=== PATIENT | female | born 2000 | race Caucasian/White ===

== ENCOUNTER 2020-04-04 05:55 | Inpatient (IN) | payer MEDICAID ==
[~2020-04-04] VITALS: Ht 157.5 cm; Wt 52.5 kg
[2020-04-04] VITALS (48 sets, daily range): BP systolic 92–136; BP diastolic 53–84
--- NOTE | 2020-04-04 06:05 | NUR ---
ASHLIE CAR presented to unit via from ED, accompanied by , for INDUCTION. ASHLIE CAR weighed, gowned, voided, and to bed. EFHM and TOCO applied, VS taken. ASHLIE CAR oriented to bed controls, call light, TV, heat, and A/C controls.
[2020-04-04] MEDS ORDERED: D5 LR IV SOLUTION 1,000 ML IV SCH (06:37)
[2020-04-04] MEDS ORDERED: MINERAL OIL CONCENTRATE 99.9% 15 ML UDC TOP PRN (06:45)
[2020-04-04] MEDS ORDERED: AMPICILLIN FOR IV USE 2,000 MG in WATER (STERILE) FOR INJECTION 14.8 ML IV SCH (06:45)
[2020-04-04] MEDS ORDERED: AMPICILLIN 2,000 MG/14.8 ML (IV USE) ONE (06:47)
[2020-04-04] MEDS ORDERED: WATER (STERILE) FOR INJECTION 20 ML ONE (06:47)
[2020-04-04 07:09] LABS: BASOPHILS % (AUTO) 0 % (0-10); EOSINOPHILS # (AUTO) 0.2 10^3/uL (0.0-0.3); EOSINOPHILS % (AUTO) 3 % (0-10); HEMATOCRIT 32 % (35-52); HEMOGLOBIN 10.4 g/dL (11.5-16.0); LYMPHOCYTES # (AUTO) 1.9 10^3/uL (1.0-4.0); LYMPHOCYTES % (AUTO) 27 % (12-44); MEAN CORPUSCULAR HEMOGLOBIN 27 pg (25-34); MEAN CORPUSCULAR HGB CONC 32 g/dL (32-36); MEAN CORPUSCULAR VOLUME 84 fL (80-99); MEAN PLATELET VOLUME 9.8 fL (9.0-12.2); MONOCYTES # (AUTO) 0.6 10^3/uL (0.0-1.0); MONOCYTES % (AUTO) 8 % (0-12); NEUTROPHILS # (AUTO) 4.4 10^3/uL (1.8-7.8); NEUTROPHILS % (AUTO) 61 % (42-75); PLATELET COUNT 216 10^3/uL (130-400); WHITE BLOOD COUNT 7.2 10^3/uL (4.3-11.0)
--- NOTE | 2020-04-04 07:16 | NUR ---
Pitocin order received from .
[2020-04-04] MEDS ORDERED: OXYTOCIN PRE-MIX DRIP 500 ML IV SCH ×2 (07:28→16:15)
[2020-04-04] MEDS ORDERED: IPRA4AER IH (08:37)
[2020-04-04] MEDS ORDERED: AMPICILLIN FOR IV USE 1,000 MG in WATER (STERILE) FOR INJECTION 7.4 ML IV SCH (10:45)
--- NOTE | 2020-04-04 12:44 | History & Physical-OB ---
OB - Chief Complaint & HPI Date/Time Date of Admission: Date of Admission: Apr 04, 2020 at 05:55 Date seen by a Provider: Apr 04, 2020 Time Seen by a Provider: 12:20 Chief Complaint/History OB-Reason for Admission/Chief: Induction of Labor Hx : 2 Hx Para: 1 Expected Date of Delivery: Apr 06, 2020 Gestational Age in Weeks: 39 Gestational Age in Days: 5 Indication for induction: maternal discomfort History of Labs A+, antibody neg, RI. HIV/HepB/RPR NR. Glucola nml. GBS pos. Allergies and Home Medications Allergies Coded Allergies: risperidone (Verified Allergy, Mild, Hives, 04/04/20) Home Medications Albuterol Sulfate 1 Puff Puff, 2 PUFF IH Q4H, (Reported) 1 PUFF = 90 MCG Iron,Carbonyl/Ascorbic Acid 1 Each Tablet.dr, 1 EACH PO DAILY, (Reported) Vit No.124/Iron/FA 1 Each Tablet, 1 EACH PO DAILY, (Reported) Patient Home Medication List Home Medication List Reviewed: Yes OB - History Hx of Present Care: Yes Ultrasounds: Normal mid trimester US Obstetrical Complications: None Medical Complications: None Information Induced Hypertension: No Maternal Gestational Diabetes: No Hemorrhage: No Obstetrical History Hx : 2 Hx Para: 1 Hx # Term Pregnancies: 1 Hx # Pregnancies: 0 Number of Living Children: 1 Hx Termination: No Hx Total # of Abortions (Spona: 0 Hx Multiple Gestation: No Hx Ectopic : No Hx Stillbirth: No Hx Complication: No Hx Induced Hypertens: No Hx Maternal Gestational Diabet: No Hx Hemorrhage: No Delivery History Hx Dystocia: No Hx Forceps Assisted Delivery: No Hx Vacuum Extraction Assisted: No Hx Placenta Abnormality: No Hx Distress: No Hx Large For Gestational Age I: No Hx Small for Gestational Age I: No Hx Section: No Hx Vaginal Delivery Post C-Sec: No Hx Blood Disorders: No Adverse Rxn to Tranfusion: No Patient Past Medical History PMHx: ADHD Depression Anxiety Asthma SurgHx: Ankle [place] teeth Social History/Family History HIV/AIDS: No Recent Infectious Disease Expo: No Sexually Transmitted Disease: No Alcohol Use: Denies Use Recreational Drug Use: No Smoking Cessation: Never smoker Immunizations Hepatitis A: No Hepatitis B: No Date of Influenza Vaccine: Mar 20, 2020 OB - Admission Exam Physical Exam Vitals: Vital Signs 04/04/20 04/04/20 04/04/20 07:45 08:15 11:45 Temp 35.4 Pulse 94 Resp 18 B/P (MAP) 98/58 (71) Pulse Ox 100 O2 Delivery Room Air HEENT: NCAT Cervical Dilatation: 5cm Effacement: 50% Station: -2 Heart Rate: 140's Accelerations: Accelerations Present Short Term Variability: Present Longterm Variability: Average (6-25) Contractions on Admission: None Vu Scoring Tool (Modified) Dilation (cm): 3-4cm (2) Effacement (%): 0-30% (0) Descent/Station: -3 (0) Cervix Consistency: Soft (2) Cervix Position: Middle/Mid-Position (1) Add 1 point for: Each previous vaginal delivery (1) (1) Vu Score: 6 Labs Laboratory Tests Test 04/04/20 06:30 Range/Units White Blood Count 7.2 4.3-11.0 10^3/uL Red Blood Count 3.81 3.80-5.11 10^6/uL Hemoglobin 10.4 L 11.5-16.0 g/dL Hematocrit 32 L 35-52 % Mean Corpuscular Volume 84 80-99 fL Mean Corpuscular Hemoglobin 27 25-34 pg Mean Corpuscular Hemoglobin Concent 32 32-36 g/dL Red Cell Distribution Width 17.9 H 10.0-14.5 % Platelet Count 216 130-400 10^3/uL Mean Platelet Volume 9.8 9.0-12.2 fL Immature Granulocyte % (Auto) 1 % Neutrophils (%) (Auto) 61 42-75 % Lymphocytes (%) (Auto) 27 12-44 % Monocytes (%) (Auto) 8 0-12 % Eosinophils (%) (Auto) 3 0-10 % Basophils (%) (Auto) 0 0-10 % Neutrophils # (Auto) 4.4 1.8-7.8 10^3/uL Lymphocytes # (Auto) 1.9 1.0-4.0 10^3/uL Monocytes # (Auto) 0.6 0.0-1.0 10^3/uL Eosinophils # (Auto) 0.2 0.0-0.3 10^3/uL Basophils # (Auto) 0.0 0.0-0.1 10^3/uL Immature Granulocyte # (Auto) 0.1 0.0-0.1 10^3/uL OB - Assessment/Plan/Diagnosis Assessment Assessment: group B positive strep, induction of labor Admission Dx Term intrauterine at 39 weeks gestation Induction of labor GBS positive Admission Status: Inpatient Order (span 2 midnights) Reason for Inpatient Admission: Induction, labor, delivery and course Plan Plan: Induction Induction Method: per Pitocin Protocol Other Plan Ampicillin for GBS pos AROM done after second dose of abx- clear fluid. BREONNA PALACIO MD Apr 04, 2020 12:44
[2020-04-04] MEDS ORDERED: RT-ALBUINH IH (12:45)
[2020-04-04] MEDS ORDERED: PREN-142 PO (12:45)
[2020-04-04] MEDS ORDERED: IRON1TAB97 PO (12:45)
--- NOTE | 2020-04-04 13:17 | NUR ---
anesthesia notified of pt's request for epidural placement
[2020-04-04] MEDS ORDERED: fentaNYL 2 mcg/ml BUPIVA 0.125 100 ML ONE (13:23)
[2020-04-04] MEDS ORDERED: LACTATED RINGERS 1,000 ML IV ONE (13:26)
[2020-04-04] MEDS ORDERED: fentaNYL 2 mcg/ml BUPIVA 0.125 100 ML IV SCH (13:26)
--- NOTE | 2020-04-04 13:26 | NUR ---
SAPNA Queen here for epidural placement. Procedure explained, consent reviewed and signed by anesthesia. Questions answered to patient's satisfaction. Time out taken to verify correct patient/procedure. 1329- Patient up to side of bed, assisted into sitting position. Betadine prep done x3 and sterile drape applied. 1336-Local done, see anesthesia record. 1347- Test dose given, see anesthesia record for drug and dosage. Epidural catheter secured in place. Epidural placement complete. 1352- Assisted back into bed, monitors adjusted. Epidural dosed, see anesthesia record. Epidural of Sufenta/Fentanyl @10cc/hr stated per pump. Patient tolerated procedure well.
[2020-04-04] MEDS ORDERED: BUPIVACAINE 0.25% 30 ML (SENSORCAINE) VIAL ONE (13:27)
[2020-04-04] MEDS ORDERED: fentaNYL INJECTION 100 MCG/2 ML AMP ONE (13:28)
[2020-04-04] MEDS ORDERED: NALOXONE 0.4 MG/ML 1 ML (NARCAN) VIAL IV PRN (13:30)
[2020-04-04] MEDS ORDERED: CATHETER FLUSH 10 ML SYR IV PRN (13:30)
[2020-04-04] MEDS ORDERED: CATHETER FLUSH 10 ML SYR IV SCH ×2 (14:00→22:00)
--- NOTE | 2020-04-04 14:21 | NUR ---
was called with SVE update. no orders received.
[2020-04-04] MEDS ORDERED: MISOPROSTOL 200 MCG (CYTOTEC) TABLET ONE (15:06)
[2020-04-04] MEDS ORDERED: MISOPROSTOL 200 MCG (CYTOTEC) TABLET PR ONE (15:08)
--- NOTE | 2020-04-04 15:20 | OB Labor & Delivery Record ---
Vag Delivery Note Vag Delivery Note Date of Delivery: 04/04/20 Preoperative Diagnosis: Mia Booker is a 20 /Para 2 / 1,Gestational Age (wks)39with 6 days Postoperative Diagnosis: Same Surgeon: BREONNA PALACIO Drying Machine Operator Package Yarns: JOSE Galarza Anesthesia: Epidural Delivery Type: Findings: Viable male infant, apgars 9/9, weight 7#7 Lacerations: none Intact placenta with 3 vessel cord. No nuchal cord, body cord or shoulder dystocia Cytotec 800 mcg placed for hemorrhage prophylaxis Estimated Blood Loss: 350 ml Complications: None Condition: Stable Description of Procedure: The patient is a 20 year old female who presented for IOL. She was admitted and informed consent was obtained. Her labor course was unremarkable. She progressed to complete dilatation and began to push. She was then set up for delivery. The infant's head was delivered atraumatically in the OA position. The shoulders and remainder of the infant's body were then delivered without difficulty. Upon delivery, the infant was vigorous and placed on maternal abdomen. After a delay the cord was doubly clamped and cut and the was handed off to the pediatric staff. An intact placenta with 3-vessel cord delivered via Alycia and there was found to be minimal bleeding.~ Vigorous fundal massage was performed and the fundus was found to be firm. IV oxytocin was given. Examination of the vagina and perineum revealed no lacerations (bilateral periurethral abrasions). Following the delay, sponge, instrument and needle counts were correct. Mom and baby were both in stable condition in the labor suite. Vitals - Labs Vital Signs - I&O Vital Signs Date Time Temp Pulse Resp B/P (MAP) Pulse Ox O2 Delivery O2 Flow Rate FiO2 04/04/20 13:00 96 18 117/77 (90) Room Air 04/04/20 12:45 100 18 128/83 (98) Room Air 04/04/20 12:30 100 18 128/83 (98) Room Air 04/04/20 12:15 36.3 88 18 92/53 (66) Room Air 04/04/20 12:00 88 18 92/53 (66) Room Air 04/04/20 11:45 94 18 98/58 (71) Room Air 04/04/20 11:30 86 18 98/54 (69) Room Air 04/04/20 11:15 82 18 102/59 (73) Room Air 04/04/20 11:00 86 18 96/57 (70) Room Air 04/04/20 10:45 83 18 99/55 (70) Room Air 04/04/20 10:30 80 18 99/55 (70) Room Air 04/04/20 10:15 80 18 99/55 (70) Room Air 04/04/20 10:00 81 18 93/54 (67) Room Air 04/04/20 09:45 84 18 97/55 (69) Room Air 04/04/20 09:30 82 18 104/60 (75) Room Air 04/04/20 09:15 88 18 105/64 (78) Room Air 04/04/20 09:00 85 18 98/54 (69) Room Air 04/04/20 08:45 90 18 92/54 (67) Room Air 04/04/20 08:30 83 18 99/56 (70) Room Air 04/04/20 08:15 78 18 114/74 (87) 100 Room Air 04/04/20 08:00 99 18 111/79 (90) Room Air 04/04/20 07:45 35.4 82 18 114/72 (86) Room Air Labs Laboratory Tests 04/04/20 06:30: White Blood Count 7.2, Red Blood Count 3.81, Hemoglobin 10.4L, Hematocrit 32L, Mean Corpuscular Volume 84, Mean Corpuscular Hemoglobin 27, Mean Corpuscular Hemoglobin Concent 32, Red Cell Distribution Width 17.9H, Platelet Count 216, Mean Platelet Volume 9.8, Immature Granulocyte % (Auto) 1, Neutrophils (%) (Auto) 61, Lymphocytes (%) (Auto) 27, Monocytes (%) (Auto) 8, Eosinophils (%) (Auto) 3, Basophils (%) (Auto) 0, Neutrophils # (Auto) 4.4, Lymphocytes # (Auto) 1.9, Monocytes # (Auto) 0.6, Eosinophils # (Auto) 0.2, Basophils # (Auto) 0.0, Immature Granulocyte # (Auto) 0.1 BREONNA PALACIO MD Apr 04, 2020 15:20
[2020-04-04] MEDS ORDERED: METHYLERGONOVINE 0.2 MG/ML (METHERGINE) AMP ONE (16:10)
[2020-04-04] MEDS ORDERED: TETANUS,DIPTH,PERTUSS P/F (BOOSTRIX) 0.5 ML VIAL IM ONE (16:15)
[2020-04-04] MEDS ORDERED: BENZOCAINE/MENTHOL (DERMOPLAST) 60 ML CAN TP PRN (16:15)
[2020-04-04] MEDS ORDERED: MISOPROSTOL 200 MCG (CYTOTEC) TABLET PV ONE (16:15)
[2020-04-04] MEDS ORDERED: MEASLES,MUMPS,RUBELLA 1 EA INJ SQ ONE (16:15)
[2020-04-04] MEDS ORDERED: METHYLERGONOVINE 0.2 MG/ML (METHERGINE) AMP IM ONE (16:15)
[2020-04-04] MEDS ORDERED: WITCH HAZEL(TUCKS) 40 EA JAR TOP PRN (16:15)
--- NOTE | 2020-04-04 17:16 | NUR ---
FFu/o. lt rubra noted. no clots expressed.
--- NOTE | 2020-04-04 18:40 | NUR ---
FFu/o. scant vaginal bleeding noted. angie-care offered. v-pad and panties in place. pt transferred to room 309 via w/c with infant and @ side. pt stable with no sx's of distress noted.
[2020-04-04] MEDS: IBUPROFEN 600 MG (MOTRIN) TAB PO SCH (18:45)
--- NOTE | 2020-04-04 19:15 | NUR ---
report given to Sarahi RN
--- NOTE | 2020-04-04 19:20 | NUR ---
This RN to room to assist patient to bathroom for the first time. Patient ambulated without difficulty. Positive void noted. Light rubra bleeding without clots noted.
[2020-04-04] MEDS: DOCUSATE SODIUM 100 MG (COLACE) CAP PO SCH (20:47)
[2020-04-05 00:20] VITALS: BP 122/72
[2020-04-05] MEDS: IBUPROFEN 600 MG (MOTRIN) TAB PO SCH ×2 (00:21→08:19)
[2020-04-05 03:55] VITALS: BP 104/57
[2020-04-05 06:43] LABS: BASOPHILS % (AUTO) 0 % (0-10); EOSINOPHILS # (AUTO) 0.2 10^3/uL (0.0-0.3); EOSINOPHILS % (AUTO) 2 % (0-10); HEMATOCRIT 32 % (35-52); HEMOGLOBIN 10.4 g/dL (11.5-16.0); LYMPHOCYTES # (AUTO) 1.9 10^3/uL (1.0-4.0); LYMPHOCYTES % (AUTO) 18 % (12-44); MEAN CORPUSCULAR HEMOGLOBIN 27 pg (25-34); MEAN CORPUSCULAR HGB CONC 32 g/dL (32-36); MEAN CORPUSCULAR VOLUME 84 fL (80-99); MONOCYTES % (AUTO) 10 % (0-12); NEUTROPHILS # (AUTO) 7.3 10^3/uL (1.8-7.8); NEUTROPHILS % (AUTO) 70 % (42-75); PLATELET COUNT 212 10^3/uL (130-400); WHITE BLOOD COUNT 10.4 10^3/uL (4.3-11.0)
[2020-04-05 08:15] VITALS: BP 116/69
[2020-04-05] MEDS: DOCUSATE SODIUM 100 MG (COLACE) CAP PO SCH (08:19)
[2020-04-05] MEDS ORDERED: IBUP-844 PO (08:49)
--- NOTE | 2020-04-05 08:52 | Discharge Summary ---
Discharge Summary Hospital Course Hospital Course Date of Admission: Apr 04, 2020 at 05:55 Admission Diagnosis : 39w5d GA; Induction of labor GBS positive Family Physician/Provider: Umang Date of Discharge: 04/05/20 Discharge Diagnosis: 39w5d GA; Induction of labor s/p ; bilateral periurethral abrasions (no repair) GBS positive- adequate antibiotic prophylaxis Hospital Course: Routine course. Labs and Pending Lab Test: Laboratory Tests 04/05/20 05:44: White Blood Count 10.4, Red Blood Count 3.86, Hemoglobin 10.4L, Hematocrit 32L, Mean Corpuscular Volume 84, Mean Corpuscular Hemoglobin 27, Mean Corpuscular Hemoglobin Concent 32, Red Cell Distribution Width 17.5H, Platelet Count 212, Mean Platelet Volume 10.0, Immature Granulocyte % (Auto) 1, Neutrophils (%) (Auto) 70, Lymphocytes (%) (Auto) 18, Monocytes (%) (Auto) 10, Eosinophils (%) (Auto) 2, Basophils (%) (Auto) 0, Neutrophils # (Auto) 7.3, Lymphocytes # (Auto) 1.9, Monocytes # (Auto) 1.0, Eosinophils # (Auto) 0.2, Basophils # (Auto) 0.0, Immature Granulocyte # (Auto) 0.1 Home Meds Active Reported Vitron-C Tablet (Iron,Carbonyl/Ascorbic Acid) 1 Each Tablet. 1 Each PO DAILY Vitamin Tablet ( Vit No.124/Iron/FA) 1 Each Tablet 1 Each PO DAILY Proair Hfa (Albuterol Sulfate) 1 Puff Puff 2 Puff IH Q4H 1 PUFF = 90 MCG Assessment/Pt DC Instructions Follow up with Dr. Heck in 6wk Discharge Diet: No Restrictions Discharge Physical Examination Allergies: Coded Allergies: risperidone (Verified Allergy, Mild, Hives, 04/04/20) General Appearance: No Apparent Distress, WD/WN Gastrointestinal: Non Tender, Soft Neurologic/Psychiatric: Alert, Oriented x3, Normal Mood/Affect Copy Copies To 1: BREONNA HECK MD Clinical Quality Measures DVT/VTE Risk/Contraindication: Risk Factor Score Per Nursin RFS Level Per Nursing on Admit: 1=Low/No VTE PPX CALLY THAO DO Apr 05, 2020 08:52
--- NOTE | 2020-04-05 11:32 | NUR ---
Discharge instructions given/explained to pt at this time. Pt denies questions. RX called into [facility] per pt request. Pt understands she is no longer a pt. Pt understands not to leave until DC instructions have been given for infant.
--- NOTE | 2020-04-05 12:36 | Anesthesia-Regional Post-Op ---
Regional Patient Condition Mental Status: Alert, Oriented x3 Circulation: Same as Pre-Op Headache: Absent Sensation: Full Recovery Motor Block: Absent Post Op Complications Complications None Follow Up Care/Instructions Patient Instructions None needed. Anesthesia/Patient Condition Patient was seen this morning and she was doing well, no complaints, stable vital signs, no apparent adverse anesthesia problems. JOSE ESTEVEZ DO Apr 05, 2020 12:36
== END 2020-04-05 11:35 | disposition home or self-care (01) | DRG 807 ==
LOC: LDRP 05:55
PROVIDERS: ADMIT Family Medicine; ATTEND Family Medicine
PROC: 10E0XZZ Delivery of Products of Conception, External Approach (ICD-10-PCS; principal; 2020-04-04)
DX: O80 Encounter for full-term uncomplicated delivery (principal); Z37.0 Single live birth; Z3A.39 39 weeks gestation of pregnancy; O71.82 Other specified trauma to perineum and vulva
CPT/HCPCS: 36415; 85025; 86780; 86850; 86900; 86901

== ENCOUNTER 2020-09-21 18:33 | Emergency (ER) | payer MEDICAID ==
[~2020-09-21] VITALS: Ht 157 cm; Wt 51.4 kg
[~2020-09-21 18:33] MED LIST: IBUP-844 PO; IPRA4AER IH; IRON1TAB97 PO; PREN-142 PO; RT-ALBUINH IH
[2020-09-21 18:39] VITALS: BP 143/94
--- NOTE | 2020-09-21 18:48 | ED GU-Female ---
General Chief Complaint: - Urinary Stated Complaint: FREQUENT URINATION Source: patient Exam Limitations: no limitations History of Present Illness Date Seen by Provider: Sep 21, 2020 Time Seen by Provider: 18:38 Initial Comments Adamaris is a pleasant 20-year-old female 2 who presents the ER with chief complaint of urinary frequency. No discharge fever, nausea, diarrhea or constipation. She follows with [facility] for primary care. She had her last menstrual period 3 weeks ago. She is using control patches but she says that she is new to them. Allergies and Home Medications Allergies Coded Allergies: risperidone (Verified Allergy, Mild, Hives, 04/04/20) Home Medications Albuterol Sulfate 1 Puff Puff, 2 PUFF IH Q4H, (Reported) 1 PUFF = 90 MCG Ibuprofen 600 Mg Tablet, 600 MG PO Q6HR Prescribed by: CALLY THAO on 04/05/20 0849 Vit No.124/Iron/FA 1 Each Tablet, 1 EACH PO DAILY, (Reported) Patient Home Medication List Home Medication List Reviewed: Yes Review of Systems Review of Systems Constitutional: No diaphoresis, No fever EENTM: No ear discharge, No ear pain Respiratory: No cough, No short of breath Cardiovascular: No chest pain, No palpitations Gastrointestinal: No abdominal pain, No nausea, No vomiting Genitourinary: denies dysuria; frequency : No All Other Systemes Reviewed Negative Unless Noted: Yes Past Gmnwmwe-Xglvcb-Nneius Hx Patient Social History Alcohol Use: Denies Use Smoking Status: Never a Smoker Type Used: Cigarettes Recent Hopitalizations: No Immunizations Up To Date Date of Influenza Vaccine: Mar 20, 2020 Seasonal Allergies Seasonal Allergies: No Past Medical History Surgeries: Yes (WISDOM TEETH, ANKLE ) Respiratory: Yes Asthma Cardiac: No Neurological: No Sexually Transmitted Disease: No HIV/AIDS: No Genitourinary: No Gastrointestinal: No Musculoskeletal: Yes Endocrine: No HEENT: Yes (WEARS GLASSES) Cancer: No Psychosocial: No Integumentary: No Blood Disorders: Yes (ANEMIA WITH ) Adverse Reaction/Blood Tranf: No Family Medical History Asthma (FAMILY HX) Physical Exam Vital Signs Vital Signs - First Documented 09/21/20 18:39 Temp 36.5 Pulse 96 Resp 14 B/P (MAP) 143/94 (110) Pulse Ox 100 O2 Delivery Room Air Capillary Refill : Height, Weight, BMI Height: '" Weight: lbs. oz. kg; 21.16 BMI Method: General Appearance: WD/WN, no apparent distress HEENT: PERRL/EOMI, pharynx normal Neck: full range of motion, normal inspection Cardiovascular: normal peripheral pulses, regular rate, rhythm Respiratory: no respiratory distress, no accessory muscle use Neurologic/Psychiatric: alert, oriented x 3 Progress/Results/Core Measures Suspected Sepsis SIRS Temperature: Pulse: Respiratory Rate: Blood Pressure / Mean: Results/Orders Lab Results Laboratory Tests Test 09/21/20 18:41 Range/Units Urine Color YELLOW Urine Clarity CLEAR Urine pH 7.5 5-9 Urine Specific [place] 1.010 L 1.016-1.022 Urine Protein NEGATIVE NEGATIVE Urine Glucose (UA) NEGATIVE NEGATIVE Urine Ketones NEGATIVE NEGATIVE Urine Nitrite NEGATIVE NEGATIVE Urine Bilirubin NEGATIVE NEGATIVE Urine Urobilinogen 0.2 < = 1.0 MG/DL Urine Leukocyte Esterase NEGATIVE NEGATIVE Urine RBC (Auto) NEGATIVE NEGATIVE Urine RBC NONE /HPF Urine WBC 0-2 /HPF Urine Squamous Epithelial Cells NONE /HPF Urine Crystals NONE /LPF Urine Bacteria NEGATIVE /HPF Urine Casts NONE /LPF Urine Mucus NEGATIVE /LPF Urine Culture Indicated NO Vital Signs/I&O 09/21/20 18:39 Temp 36.5 Pulse 96 Resp 14 B/P (MAP) 143/94 (110) Pulse Ox 100 O2 Delivery Room Air Capillary Refill : Progress Note : Time: 19:08 Progress Note Urinalysis does not reveal anything specific. Perhaps she has some urethritis. Plan to put her on some Macrobid with instructions if she is not getting better next week to follow-up with her primary care doctor to investigate further. She declined STI testing at this time Departure Impression Primary Impression: Urinary tract infection Qualified Codes: N34.2 - Other urethritis Disposition: HOME, SELF-CARE Condition: Stable Departure-Patient Inst. Decision time for Depature: 19:00 Referrals: [facility] (Family) Primary Care Physician Patient Instructions: Urinary Tract Infection, Adult (DC) Add. Discharge Instructions: Start taking Macrobid twice a day for the next week. If your symptoms completely go away then do another 2 days worth of antibiotics and stop. If your symptoms do not go away after the antibiotics then make an appointment with your primary care doctor to do more investigation. All discharge instructions reviewed with patient and/or family. Voiced understanding. Scripts Nitrofurantoin Macrocrystal (Nitrofurantoin) 100 Mg Capsule 100 MG PO BID, #14 CAP 0 Refills Prov: EFRA SALEEM 09/21/20 EFRA SALEEM Sep 21, 2020 18:48
[2020-09-21 18:49] LABS: BILIRUBIN,URINE NEGATIVE (NEGATIVE); CLARITY,URINE CLEAR; COLOR,URINE YELLOW; GLUCOSE, URINE (UA) NEGATIVE (NEGATIVE); KETONES,URINE NEGATIVE (NEGATIVE); LEUKOCYTE ESTERASE ,URINE NEGATIVE (NEGATIVE); NITRITE,URINE NEGATIVE (NEGATIVE); PH,URINE 7.5 (5-9); PROTEIN,URINE NEGATIVE (NEGATIVE)
[2020-09-21 18:56] LABS: BACTERIA,URINE NEGATIVE /HPF; WBC,URINE 0-2 /HPF
[2020-09-21] MEDS ORDERED: NITR100C PO (19:10)
== END 2020-09-21 19:16 | disposition home or self-care (01) ==
LOC: EDUNIT# 18:33 → ER 18:38
DX: N39.0 Urinary tract infection, site not specified (principal); J45.909 Unspecified asthma, uncomplicated; Z88.8 Allergy status to other drugs, medicaments and biological substances
CPT/HCPCS: 81000; 84703; 99282